=== PATIENT | male | born 1950 | race Caucasian/White ===

== ENCOUNTER → 2016-07-07 | Outpatient (CLI) | payer MEDICARE, OTHER ==
--- NOTE | 2016-07-07 16:12 | CR ---
EXAM DATE: 07/07/16 PATIENT'S AGE: 66 Patient: CHRISTOPH MCCORD Facility: [place], [place] Site . Site : 1950 Study: XRay Extremity Left ankle [id number] 11:06:48 AM Ordering Physician: Nikky Watkins Final Report: Indication: Trauma and pain Technique: Left ankle four views Comparison: None Findings/Impression: Bones: Acute nondisplaced fracture is present in the lateral malleolus. No other fracture nor dislocation. Joint spaces: Ankle mortise is congruent. Soft tissues: Lateral soft tissue swelling is present. Dictated by Srini Dao MD @ 07/07/2016 1:13:54 PM Dictated by: Srini Doa MD @ 07/07/2016 13:14:02 (Electronic Signature) Report Signed by Proxy and Original Signed Document filed in the Medical Record. [email or web address]
== END ==
LOC: MW.CHFP 10:43
PROVIDERS: ATTEND Physician Assistant
DX: S82.65XA Nondisplaced fracture of lateral malleolus of left fibula, initial encounter for closed fracture (principal)
CPT/HCPCS: 73610-26-LT; 73610-LT

== ENCOUNTER 2020-12-17 00:03 | Emergency (ER) | payer MEDICARE, OTHER ==
[2020-12-17 00:15] VITALS: BP 145/73; PULSE 72
[2020-12-17] MEDS ORDERED: Cefdinir 300 MG Cap PO ONE (00:36)
--- NOTE | 2020-12-17 01:10 | EDM.PDOC ---
ED HPI GENERAL MEDICAL PROBLEM - General Chief Complaint: Laceration Stated Complaint: RT THUMB LACERATION Time Seen by Provider: 12/17/20 00:35 - History of Present Illness INITIAL COMMENTS - FREE TEXT/NARRATIVE: HISTORY AND PHYSICAL: History of present illness: This is a 70-year-old gentleman who presents ER today secondary to a laceration to the volar aspect of his right thumb that occurred approximately 5 days ago. Patient reports that he used tape and bandaged it up and then today when he took the tape off he had purulent material coming out and the wound had not started to heal yet. Patient presents ER today secondary to concern about a wound infection. Patient denies any other symptomatology at this time. Patient denies any pain or swelling up his arm or streaking up his arm. Patient denies any swelling of his lymph nodes. Patient has any recent fevers, shakes, chills, nausea, vomiting, diarrhea. Patient denies any loss of motor function to his thumb. Patient has full flexion and extension of his MP joint of his thumb. Review of systems: As per history of present illness and below otherwise all systems reviewed and negative. Past medical history: As per history of present illness and as reviewed below otherwise noncontributory. Surgical history: As per history of present illness and as reviewed below otherwise noncontributory. Social history: No reported history of drug abuse. Family history: As per history of present illness and as reviewed below otherwise noncontributory. Physical exam: This patient was seen and evaluated during the 2019 SARS-CoV-2 novel coronavirus pandemic period. Community viral transmission is ongoing at time of this encounter and the emergency department is operating under pandemic response procedures. Constitutional: Patient is oriented to person, place, and time. Appears well- developed and well-nourished. No distress. HEENT: Moist mucous membranes Head: Normocephalic and atraumatic Eyes: Right eye exhibits no discharge. Left eye exhibits no discharge. No scleral icterus Neck: Normal range of motion. No tracheal deviation present. Cardiovascular: Normal rate and regular rhythm. Pulmonary: Effort normal, no respiratory distress. Abdominal: No distention Musculoskeletal: Normal range of motion Neurologic: Alert and oriented to person, place and time. Skin: [place], warm and dry. Psychiatric: Normal mood and affect. Behavior is normal. Judgment and thought content normal. Nursing note and vital signs have been reviewed Patient is ER physical exam is significant for a 3 cm laceration to the dorsal aspect of his distal phalanx of his right thumb. There was a small amount appearing material that was still expressed in the ED. Wound is open and bleeding. Patient sensation is intact. Patient has normal flexion extension of his thumb. Patient has no lymphangitic streaking. Diagnostics: [] Therapeutics: X-ray right thumb notes no foreign body or fracture. Assessment and plan: This is a 70-year-old gentleman who presents ER today secondary to wound infection. Patient had a laceration to his thumb approximate 5 days ago which she did not seek medical care for and tried to heal on his own using tape. [place] reports when he took the tape off today he noticed a significant amount of purulent material expressed from the wound and the wound margins have not started to heal as of yet. Patient came to the ED for assistance with management of his wound infection and laceration. Given that the wound is infected at this time, the laceration will need to remain open and will need to start the patient on antibiotics. The wound was irrigated in the ED and cleansed with saline bottles. Patient was started on Omnicef here in the ED and a dressing and splint were applied. Patient will need a wound check by his doctor in 2 days to assure improvement of the infection will return to the ED if he is unable to make an appointment see his doctor. Once patient has been on the antibiotic for a week I believe that the wound will start healing or we can utilize sutures to start closing the laceration. Patient reports he believes his tetanus status is up-to-date and will check with his doctor in 1 to 2 days when he visits. Reassessment at the time of disposition demonstrates that the patient is in no acute distress. The patient has remained stable throughout the entire ED visit and is without objective evidence for acute process requiring urgent intervention or hospitalization. The patient is stable for discharge, counseling is provided as documented above, discussed symptomatic treatment and specific conditions for return. I have spoken with the patient/caregiver and discussed todays findings, in addition to providing specific details for the plan of care. Questions are answered and there is agreement with the plan. Definitive disposition and diagnosis as appropriate pending reevaluation and review of above. right thumb Pain Score (Numeric/FACES): 4 - Related Data Allergies Allergy/AdvReac Type Severity Reaction Status Date / Time No Known Allergies Allergy Verified 12/17/20 00:15 Home Meds: Home Meds Cefdinir [Omnicef] 300 mg PO BID #20 cap 12/17/20 [Rx] Losartan [Cozaar] 12/17/20 [History] Past Medical History HEENT History: Reports: None Cardiovascular History: Reports: Hypertension Respiratory History: Reports: None Gastrointestinal History: Reports: None Genitourinary History: Reports: None Musculoskeletal History: Reports: None Neurological History: Reports: None Psychiatric History: Reports: None Endocrine/Metabolic History: Reports: None Hematologic History: Reports: None Immunologic History: Reports: None Oncologic (Cancer) History: Reports: None Dermatologic History: Reports: None - Infectious Disease History Infectious Disease History: Reports: Chicken Pox - Past Surgical History Head Surgeries/Procedures: Reports: None Social & Family History - Family History Family Medical History: No Pertinent Family History - Tobacco Use Tobacco Use Status *Q: Never Tobacco User Second Hand Smoke Exposure: No - Caffeine Use Caffeine Use: Reports: None - Recreational Drug Use Recreational Drug Use: No ED ROS GENERAL - Review of Systems Review Of Systems: See Below ED EXAM, SKIN/RASH Exam: See Below Course - Vital Signs Last Recorded V/S: Last Vital Signs Temp 97.4 F 12/17/20 00:10 Pulse 72 12/17/20 00:10 Resp 18 12/17/20 00:10 BP 145/73 H 12/17/20 00:10 Pulse Ox 98 12/17/20 00:10 - Orders/Labs/Meds Orders: Active Orders 24 hr Category Date Time Status Fingers Thumb Rt F5 [CR] Stat Exams 12/17/20 00:36 Ordered Meds: Medications Discontinued Medications Generic Name Dose Route Start Last Admin Trade Name Edmund PRN Reason Stop Dose Admin Cefdinir 300 mg 12/17/20 00:36 12/17/20 00:44 Cefdinir 300 Mg Cap PO 12/17/20 00:37 300 mg ONETIME ONE Administration Departure - Departure Time of Disposition: 01:09 Disposition: Home, Self-Care 01 Condition: Good Clinical Impression: Wound infection, Open wound of finger, infected - Discharge Information Instructions: Wound Infection, [id number] Referrals: Madhu Andrews MD [Primary Care Provider] - Forms: ED Department Discharge Additional Instructions: You were seen and evaluated in the ER today secondary to a wound infection of your thumb. You will be started on antibiotics for 10 days. Please take Omnicef twice a day for 10 days. Please make appointment see your doctor for reevaluation in 2 to 3 days to make sure that the infection is improving. You may return to the ED after being on antibiotics for 7 days for delayed closure of your infected wound. Please keep the dressing on and keep it clean and dry. He may change the dressing daily to make sure that there is no worsening infection. Please make sure that you see your doctor in 2 days for wound check and to ask about your tetanus status. The following information is given to patients seen in the emergency department who are being discharged to home. This information is to outline your options for follow-up care. We provide all patients seen in our emergency department with a follow-up referral. The need for follow-up, as well as the timing and circumstances, are variable depending upon the specifics of your emergency department visit. If you don't have a primary care physician on staff, we will provide you with a referral. We always advise you to contact your personal physician following an emergency department visit to inform them of the circumstance of the visit and for follow-up with them and/or the need for any referrals to a consulting specialist. The emergency department will also refer you to a specialist when appropriate. This referral assures that you have the opportunity for follow-up care with a specialist. All of these measure are taken in an effort to provide you with optimal care, which includes your follow-up. Under all circumstances we always encourage you to contact your private physician who remains a resource for coordinating your care. When calling for follow-up care, please make the office aware that this follow-up is from your recent emergency room visit. If for any reason you are refused follow-up, please contact the [facility] Emergency Department at and asked to speak to the emergency department charge nurse. Rosetta Teton [facility] [address] [place] [id number] [id number] Sepsis Event Note (ED) - Focused Exam Vital Signs: Vital Signs Temp Pulse Resp BP Pulse Ox 12/17/20 00:10 97.4 F 72 18 145/73 H 98 - My Orders Last 24 Hours: My Active Orders 12/17/20 00:36 Fingers Thumb Rt F5 [CR] Stat - Assessment/Plan Last 24 Hours: My Active Orders 12/17/20 00:36 Fingers Thumb Rt F5 [CR] Stat
--- NOTE | 2020-12-17 01:34 | CR ---
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 Punctate capsular calcifications are also noted along the 1st metacarpophalangeal joint. Joint: Mild widening of the scapholunate joint is noted. Soft tissue: Unremarkable. No radiopaque foreign bodies are seen. IMPRESSIONS: 1. No acute osseous injuries or abnormalities are noted. 2. Mild widening of the scapholunate joint is noted. This can be due to injury of the associated scapholunate ligament. Without prior comparison studies, the age is indeterminate. Dictated by Darrel Martin MD @ 12/17/2020 1:32:35 AM Dictated by: Darrel Martin MD @ 12/17/2020 01:32:39 (Electronically Signed)
== END 2020-12-17 01:16 | disposition home or self-care (01) ==
LOC: MW.ED 00:03
DX: S61.011A Laceration without foreign body of right thumb without damage to nail, initial encounter (principal); L08.9 Local infection of the skin and subcutaneous tissue, unspecified; I10 Essential (primary) hypertension; Z79.899 Other long term (current) drug therapy; W26.8XXA Contact with other sharp object(s), not elsewhere classified, initial encounter
CPT/HCPCS: 73140; 99284; A9270; 99283